=== PATIENT | male | born 1980 | race African-American/Black ===

== ENCOUNTER 2024-03-27 09:48 | Emergency (ER) | payer OTHER, SELFPAY | END 2024-03-27 10:04 | disposition home or self-care (01) | LOC: CSHERS 09:48 | DX: Z76.0 Encounter for issue of repeat prescription (principal); E11.9 Type 2 diabetes mellitus without complications; Z79.84 Long term (current) use of oral hypoglycemic drugs; Z87.891 Personal history of nicotine dependence | CPT/HCPCS: 99281 ==